=== PATIENT | female | born 1990 | race Caucasian/White ===

== ENCOUNTER → 2020-03-06 | Outpatient (CLI) | payer MEDICAID, SELFPAY | END | disposition home or self-care (01) | PROVIDERS: Referring Provider Obstetrics & Gynecology; Visit Provider Obstetrics & Gynecology | DX: R30.0 Dysuria (principal) | CPT/HCPCS: 87086; 87088 ==

== ENCOUNTER → 2020-11-30 | Outpatient (CLI) | payer MEDICAID, SELFPAY ==
[2016-10-17 20:22] VITALS: BMI 40.8
[2020-12-05 03:07] LABS: Chlamydia By Nucleic Acid AMP Negative (Negative)
[2020-12-05 09:29] LABS: Gonococcus By Nucleic Acid AMP Negative (Negative)
[2020-12-06 15:21] LABS: HPV Reflexed? NOT INDICATED
== END | disposition home or self-care (01) ==
LOC: LABSPEC 12:01
PROVIDERS: Visit Provider Obstetrics & Gynecology
DX: Z32.01 Encounter for pregnancy test, result positive (principal); Z12.4 Encounter for screening for malignant neoplasm of cervix; Z11.3 Encounter for screening for infections with a predominantly sexual mode of transmission
CPT/HCPCS: 87491; 87591; 88175; G0145

== ENCOUNTER → 2020-12-06 15:10 | Outpatient (CLI) | payer MEDICAID, SELFPAY ==
[2016-10-17 20:22] VITALS: BMI 40.8
[2020-12-06 16:46] LABS: hCG Titer Quant., Serum 17314 mIU/mL (1-3)
== END ==
PROVIDERS: Visit Provider Obstetrics & Gynecology
DX: O20.0 Threatened abortion (principal); Z3A.00 Weeks of gestation of pregnancy not specified
CPT/HCPCS: 36415; 84702

== ENCOUNTER → 2020-12-08 14:26 | Outpatient (CLI) | payer MEDICAID, SELFPAY ==
[2016-10-17 20:22] VITALS: BMI 40.8
[2020-12-08 15:43] LABS: Absolute Neutrophil Count 3.4 X10^3/uL (2.0-7.7); Basophil# 0.04 X10^3/uL; Basophil% 0.7 % (0-1); Eosinophil# 0.12 X10^3/uL; Hematocrit 40.7 % (37-47); Hemoglobin 11.7 g/dL (12.0-15.0); Lymphocyte % 35.1 % (19-41); Mean Corp Hgb Conc 28.7 g/dL (32-36); Mean Corpuscular Hgb 21.6 pg (27.0-32.0); Mean Corpuscular Volume 75.2 fL (81-99); Mean Platelet Vol. 10.7 fl (6.2-12.0); Monocyte# 0.35 X10^3/uL; Monocyte% 5.9 % (0-10); NRBC Flagged by Analyzer 0 % (0-5); Neutrophil # 3.36 X10^3/uL (2.7-7.7); Neutrophil % 56.1 % (47-70); Platelet Count 303 K/mm3 (150-450); RBC Distribution Width CV 17.3 % (11.6-14.6); Red Blood Count 5.41 M/mm3 (4.2-5.4)
[2020-12-13 15:15] LABS: HIV - WCH Non-Reactive (Nonreactive); Hepatitis B Surface Antigen Non-Reactive (Nonreactive); Hepatitis C Antibody Non-Reactive (Nonreactive); Rubella IgG Reactive (Nonreactive)
[2020-12-14 03:03] LABS: Prenatal RPR NONREACTIVE (NONREACTIVE)
== END ==
PROVIDERS: Visit Provider Student in an Organized Health Care Education/Training Program
DX: Z34.81 Encounter for supervision of other normal pregnancy, first trimester (principal)
CPT/HCPCS: 36415; 85025; 86703; 86762; 86803; 87086; 87088; 87340

== ENCOUNTER → 2021-01-04 15:23 | Outpatient (CLI) | payer MEDICAID, SELFPAY ==
[2016-10-17 20:22] VITALS: BMI 40.8
[2021-01-04 16:10] LABS: Absolute Neutrophil Count 4.8 X10^3/uL (2.0-7.7); Basophil# 0.03 X10^3/uL; Basophil% 0.4 % (0-1); Eosinophil# 0.19 X10^3/uL; Eosinophils% 2.6 % (0-5); Hemoglobin 11.4 g/dL (12.0-15.0); Lymphocyte % 26.9 % (19-41); Mean Corpuscular Hgb 22.4 pg (27.0-32.0); Mean Corpuscular Volume 74.7 fL (81-99); Mean Platelet Vol. 10.5 fl (6.2-12.0); Monocyte# 0.36 X10^3/uL; Monocyte% 4.8 % (0-10); NRBC Flagged by Analyzer 0 % (0-5); Neutrophil # 4.84 X10^3/uL (2.7-7.7); Platelet Count 233 K/mm3 (150-450); RBC Distribution Width CV 16.7 % (11.6-14.6); RBC Distribution Width SD 44.4 fl (35.1-43.9); Red Blood Count 5.09 M/mm3 (4.2-5.4); White Blood Count 7.4 K/mm3 (4.4-11.0)
[2021-01-04 16:15] LABS: Color, Urine Yellow (Yellow); Glucose, Dipstick Normal (Normal); Ketone-Dipstick 5 mg/dl (Negative); Leukocyte Esterase-Dipstick 100 /ul (Negative); Nitrite-Dipstick Negative (Negative); Occult Blood-Urine Negative /ul (Negative); Protein-Dipstick 15 mg/dl (Negative); Urine Bilirubin Dipstick Negative (Negative); Urine Clarity Clear (Clear); Urine Urobilinogen Normal (Normal)
[2021-01-04 16:43] LABS: Thyroid Stim Hormone (TSH) 0.38 uIU/mL (0.358-3.74)
[2021-01-04 17:16] LABS: Amphetamine Urine VISTA NEGATIVE (<1000 ng/mL); Barbiturate Urine VISTA NEGATIVE (< 200 ng/mL); Benzodiazepine Urine VISTA NEGATIVE (< 200 ng/mL); Cocaine Urine VISTA NEGATIVE (< 300 ng/mL); Ecstacy Urine VISTA NEGATIVE (< 500 ng/mL); Methadone Urine VISTA NEGATIVE (< 300 ng/mL); PCP Urine VISTA NEGATIVE (< 25 ng/mL); THC Urine VISTA NEGATIVE (< 50 ng/mL); Vista UDS pH Range 5
[2021-01-05 09:13] LABS: HIV - WCH Non-Reactive (Nonreactive); Hepatitis B Surface Antigen Non-Reactive (Nonreactive); Hepatitis C Antibody Non-Reactive (Nonreactive); Rubella IgG Reactive (Nonreactive); Syphilis Antibodies Non-reactive
[2021-01-16 14:48] LABS: KEPPRA (LEVETIRACETAM) 10.4 ug/mL (10.0-40.0); Lamotrigine (Lamictal) Level 6.4 ug/mL (2.0-20.0)
== END ==
PROVIDERS: Visit Provider Obstetrics & Gynecology
DX: Z34.81 Encounter for supervision of other normal pregnancy, first trimester (principal); G40.009 Localization-related (focal) (partial) idiopathic epilepsy and epileptic syndromes with seizures of localized onset, not intractable, without status epilepticus
CPT/HCPCS: 36415; 80177; 80307; 81002; 82542; 84443; 85025; 86703; 86762; 86803; 87086; 87088; 87340

== ENCOUNTER → 2021-04-17 | Outpatient (CLI) | payer MEDICAID, SELFPAY ==
[2016-10-17 20:22] VITALS: BMI 40.8
[2021-04-17 17:53] LABS: Hematocrit 33.7 % (37-47); Hemoglobin 10.4 g/dL (12.0-15.0); Mean Corp Hgb Conc 30.9 g/dL (32-36); Mean Corpuscular Hgb 24.5 pg (27.0-32.0); Mean Corpuscular Volume 79.5 fL (81-99); Mean Platelet Vol. 10.6 fl (6.2-12.0); Platelet Count 229 K/mm3 (150-450); RBC Distribution Width CV 16.3 % (11.6-14.6); RBC Distribution Width SD 46.6 fl (35.1-43.9); Red Blood Count 4.24 M/mm3 (4.2-5.4); White Blood Count 7.4 K/mm3 (4.4-11.0)
[2021-04-17 18:05] LABS: Glucose Challenge Gest 1H 50g 113 mg/dL (70-140)
== END | disposition home or self-care (01) ==
PROVIDERS: Visit Provider Student in an Organized Health Care Education/Training Program
DX: Z34.82 Encounter for supervision of other normal pregnancy, second trimester (principal)
CPT/HCPCS: 36415; 82950; 85027

== ENCOUNTER → 2021-05-16 16:08 | Outpatient (CLI) | payer MEDICAID, SELFPAY ==
[2016-10-17 20:22] VITALS: BMI 40.8
[2021-05-16 17:32] LABS: Hematocrit 36.1 % (37-47); Mean Corp Hgb Conc 30.5 g/dL (32-36); Mean Corpuscular Hgb 24.1 pg (27.0-32.0); Mean Corpuscular Volume 79.2 fL (81-99); Mean Platelet Vol. 10.2 fl (6.2-12.0); Platelet Count 265 K/mm3 (150-450); RBC Distribution Width CV 14.7 % (11.6-14.6); RBC Distribution Width SD 42.2 fl (35.1-43.9); Red Blood Count 4.56 M/mm3 (4.2-5.4); White Blood Count 9.2 K/mm3 (4.4-11.0)
[2021-05-16 17:41] LABS: Protein, Urine (Random) 37.7 mg/dL (<11.9); Protein:Creat Ratio 212 mg/g CRE (0-200)
[2021-05-16 18:18] LABS: ALB/GLOB Ratio 0.6 RATIO (0.9-2.4); AST(SGOT) 9 U/L (15-37); Alanine Aminotransfer ALT/SGPT 10 U/L (13-56); Albumin, Serum 2.5 g/dL (3.2-5.0); Alkaline Phosphatase 159 U/L (45-117); Anion Gap 4 (5-15); BUN 6 mg/dL (7-18); BUN/Creat Ratio 11.9 RATIO (10-20); Calcium,Total 8.5 mg/dL (8.5-10.1); Chloride 107 mmol/L (98-107); EST Glomerular Filtration Rate 152 mL/min (>60); Est Glom Filt Rate - Afr Amer 184 mL/min (>60); Globulin 4.5 g/dL (2.2-4.2); Glucose 83 mg/dL (74-106); LDH 119 U/L (84-246); Sodium Level 137 mmol/L (136-145); Uric Acid 3.4 mg/dL (2.6-6.0)
== END ==
PROVIDERS: Referring Provider Obstetrics & Gynecology; Visit Provider Obstetrics & Gynecology
DX: Z34.83 Encounter for supervision of other normal pregnancy, third trimester (principal); I10 Essential (primary) hypertension
CPT/HCPCS: 36415; 80053; 82570; 83615; 84156; 84550; 85027

== ENCOUNTER → 2021-05-30 | Outpatient (CLI) | payer MEDICAID, SELFPAY | END | disposition home or self-care (01) | LOC: LABSPEC 16:47 | PROVIDERS: Referring Provider Obstetrics & Gynecology; Visit Provider Obstetrics & Gynecology | DX: Z34.83 Encounter for supervision of other normal pregnancy, third trimester (principal); R35.1 Nocturia | CPT/HCPCS: 87086; 87088 ==

== ENCOUNTER 2021-06-02 17:15 | Outpatient (CLI) | payer MEDICAID, SELFPAY ==
[2016-10-17 20:22] VITALS: BMI 40.8
--- NOTE | 2021-06-02 17:28 | OB.TRI.NOTE ---
HPI - General HPI Narrative KARLA BRAVO, is a 31 F who presents back pain PFSH PFSH Home Medications lamotrigine [Lamictal] 300 mg PO BID 06/02/21 [History Last Taken 06/02/21 10:00] levetiracetam [Keppra] 500 mg PO BID 06/02/21 [History Last Taken 06/02/21 10:00] vit,[id number] [Prenatabs FA] 1 tab PO DAILY 06/02/21 [History Last Taken 06/01/21 22:00] Allergy/AdvReac Type Severity Reaction Status Date / Time amoxicillin Allergy Rash Verified 10/17/16 20:24 cephalexin [From Keflex] Allergy Rash Verified 06/02/21 17:50 Social History Smoking Status: Never smoker NST FHR Rate Baby A Baseline: 140 Variability:: Moderate Accelerations:: 10 x 10 Decelerations:: None NST Reactive:: Yes Uterine Activity:: Quiet Assessment & Plan (1) : PLAN: Patient arrives with back pain. Resolved with Flexeril. No signs of labor. Reassuring heart tones. To discharge home and follow-up at scheduled appointments
[2021-06-02 17:36] VITALS: BP 117/59; PULSE 92; TEMP 36.4; O2SAT 99
[2021-06-02 17:39] VITALS: BP 117/59; PULSE 95
[2021-06-02 17:49] VITALS: BMI 42.5
[2021-06-02 18:23] LABS: Mucous, Urine 0 SEEN /hpf (<or=2+); Red Blood Cells-Urine 0 SEEN /hpf (0-5)
[2021-06-02 18:28] LABS: Color, Urine Yellow (Yellow); Glucose, Dipstick Normal (Normal); Ketone-Dipstick Negative (Negative); Leukocyte Esterase-Dipstick 25 /ul (Negative); Nitrite-Dipstick Negative (Negative); Occult Blood-Urine Negative /ul (Negative); Protein-Dipstick Negative (Negative); Specific Gravity, Urine 1.005 (1.002-1.030); Urine Bilirubin Dipstick Negative (Negative); Urine Clarity Clear (Clear); Urine Urobilinogen Normal (Normal)
[2021-06-02] MEDS: cycloBENZAPRine HCl 10 MG Tablet PO (18:33)
[2021-06-02 18:34] LABS: Bacteria RARE /hpf (None Seen); Squamous Epithelial Cells - UA 0-5 SEEN /hpf (5-10); White Blood Cells 0-5 SEEN /hpf (0-5)
== END 2021-06-02 19:40 | disposition home or self-care (01) ==
LOC: WPOUT 17:21 → WP 17:22
PROVIDERS: Visit Provider Obstetrics & Gynecology
DX: O26.899 Other specified pregnancy related conditions, unspecified trimester (principal); M54.9 Dorsalgia, unspecified; Z3A.00 Weeks of gestation of pregnancy not specified
CPT/HCPCS: 59025; 59050; 81001; 99218; G0378

== ENCOUNTER → 2021-06-15 15:47 | Outpatient (CLI) | payer MEDICAID, SELFPAY ==
[2021-06-02 17:49] VITALS: BMI 42.5
[2021-06-15 15:50] LABS: Mucous, Urine 0 SEEN /hpf (<or=2+); Red Blood Cells-Urine 0 SEEN /hpf (0-5)
[2021-06-15 16:36] LABS: Protein, Urine (Random) 47.4 mg/dL (<11.9); Protein:Creat Ratio 193 mg/g CRE (0-200)
[2021-06-15 16:42] LABS: Color, Urine Yellow (Yellow); Glucose, Dipstick Normal (Normal); Leukocyte Esterase-Dipstick 500 /ul (Negative); Nitrite-Dipstick Negative (Negative); Occult Blood-Urine Negative /ul (Negative); Protein-Dipstick 30 mg/dl (Negative); Specific Gravity, Urine 1.015 (1.002-1.030); Urine Clarity Sl. Cloudy (Clear); Urine Urobilinogen 4 mg/dl (Normal); Urine pH 6.5 (5.0 - 8.0)
[2021-06-15 16:44] LABS: Hematocrit 33.3 % (37-47); Hemoglobin 10.1 g/dL (12.0-15.0); Mean Corp Hgb Conc 30.3 g/dL (32-36); Mean Corpuscular Hgb 23.5 pg (27.0-32.0); Mean Corpuscular Volume 77.6 fL (81-99); Mean Platelet Vol. 10.2 fl (6.2-12.0); Platelet Count 231 K/mm3 (150-450); RBC Distribution Width CV 14.7 % (11.6-14.6); RBC Distribution Width SD 41.2 fl (35.1-43.9); Red Blood Count 4.29 M/mm3 (4.2-5.4); White Blood Count 8.9 K/mm3 (4.4-11.0)
[2021-06-15 17:06] LABS: Urine Bilirubin Dipstick 1 mg/dL (Negative)
[2021-06-15 17:07] LABS: Ketone-Dipstick 150 mg/dl (Negative)
[2021-06-15 17:18] LABS: ALB/GLOB Ratio 0.6 RATIO (0.9-2.4); AST(SGOT) 8 U/L (15-37); Alanine Aminotransfer ALT/SGPT 8 U/L (13-56); Albumin, Serum 2.3 g/dL (3.2-5.0); Alkaline Phosphatase 150 U/L (45-117); Anion Gap 11 (5-15); BUN 4 mg/dL (7-18); BUN/Creat Ratio 6.9 RATIO (10-20); Calcium,Total 7.9 mg/dL (8.5-10.1); Chloride 106 mmol/L (98-107); Creatinine, Serum 0.58 mg/dL (0.55-1.02); EST Glomerular Filtration Rate 130 mL/min (>60); Est Glom Filt Rate - Afr Amer 157 mL/min (>60); Glucose 117 mg/dL (74-106); LDH 97 U/L (84-246); Potassium 3.3 mmol/L (3.5-5.1); Protein, Total 6.3 g/dL (6.4-8.2); Sodium Level 138 mmol/L (136-145)
[2021-06-15 17:30] LABS: Amorphous Sediment 1+ URATE; Bacteria RARE /hpf (None Seen); Squamous Epithelial Cells - UA 10-25 SEEN /hpf (5-10); White Blood Cells 25-50 SEEN /hpf (0-5)
== END ==
PROVIDERS: Visit Provider Obstetrics & Gynecology
DX: O13.3 Gestational [pregnancy-induced] hypertension without significant proteinuria, third trimester (principal); Z3A.00 Weeks of gestation of pregnancy not specified
CPT/HCPCS: 36415; 80053; 81001; 82570; 83615; 84156; 85027

== ENCOUNTER 2021-07-03 09:00 | Outpatient (CLI) | payer MEDICAID, SELFPAY ==
[2021-07-03 09:27] VITALS: BP 123/86; PULSE 107
[2021-07-03 09:30] VITALS: BMI 42.7
--- NOTE | 2021-07-03 21:54 | OB.TRI.NOTE ---
HPI - General HPI Narrative KARLA BRAVO, is a 31 F who presents NST with Covid PFSH PFSH Home Medications lamotrigine [Lamictal] 300 mg PO BID 06/02/21 [History Last Taken 06/02/21 10:00] levetiracetam [Keppra] 500 mg PO BID 06/02/21 [History Last Taken 06/02/21 10:00] vit,[id number] [Prenatabs FA] 1 tab PO DAILY 06/02/21 [History Last Taken 06/01/21 22:00] Allergy/AdvReac Type Severity Reaction Status Date / Time amoxicillin Allergy Rash Verified 07/03/21 10:11 cephalexin [From Keflex] Allergy Rash Verified 07/03/21 10:11 Social History Smoking Status: Never smoker NST FHR Rate Baby A Baseline: 130 Variability:: Moderate Accelerations:: 15 x 15 Decelerations:: None NST Reactive:: Yes Uterine Activity:: Quiet Assessment & Plan (1) : PLAN: Patient arrives for NST with Covid. Reactive NST. Follow-up at scheduled appointments
== END 2021-07-03 10:10 | disposition home or self-care (01) ==
LOC: WPOUT 09:07 → WP 09:07
PROVIDERS: Visit Provider Obstetrics & Gynecology
DX: O98.519 Other viral diseases complicating pregnancy, unspecified trimester (principal); U07.1 COVID-19; Z3A.00 Weeks of gestation of pregnancy not specified
CPT/HCPCS: 59025

== ENCOUNTER → 2021-07-13 | Outpatient (CLI) | payer MEDICAID, SELFPAY | END | disposition home or self-care (01) | LOC: LABSPEC 11:07 | PROVIDERS: Visit Provider Obstetrics & Gynecology | DX: Z36.85 Encounter for antenatal screening for Streptococcus B (principal) | CPT/HCPCS: 87081 ==

== ENCOUNTER 2021-07-14 14:42 | Outpatient (CLI) | payer MEDICAID, SELFPAY ==
[2021-07-14 15:05] VITALS: TEMP 37; O2SAT 98
[2021-07-14 15:06] VITALS: BP 140/85; PULSE 84
[2021-07-14 15:20] VITALS: BMI 43.4
[2021-07-14 15:23] VITALS: BP 134/86; PULSE 83
[2021-07-14 15:38] VITALS: BP 131/83; PULSE 79
[2021-07-14 15:39] LABS: ROM Internal Control Test YES-OK TO RESULT pt. (Internal QC); ROM Patient Test Negative (Negative)
[2021-07-14] MEDS: 0.9% Saline Lock 10 ML Syringe IV (16:00)
[2021-07-14 16:13] LABS: Hematocrit 36.3 % (37-47); Hemoglobin 11.1 g/dL (12.0-15.0); Mean Corp Hgb Conc 30.6 g/dL (32-36); Mean Corpuscular Hgb 24.2 pg (27.0-32.0); Mean Corpuscular Volume 79.1 fL (81-99); Mean Platelet Vol. 11.1 fl (6.2-12.0); Platelet Count 193 K/mm3 (150-450); RBC Distribution Width CV 16.2 % (11.6-14.6); RBC Distribution Width SD 45.3 fl (35.1-43.9); Red Blood Count 4.59 M/mm3 (4.2-5.4); White Blood Count 6.6 K/mm3 (4.4-11.0)
[2021-07-14 16:29] LABS: AST(SGOT) 16 U/L (15-37); Alanine Aminotransfer ALT/SGPT 23 U/L (13-56); Creatinine, Serum 0.47 mg/dL (0.55-1.02); EST Glomerular Filtration Rate 166 mL/min (>60); Est Glom Filt Rate - Afr Amer 201 mL/min (>60); Uric Acid 3.8 mg/dL (2.6-6.0)
[2021-07-14 16:36] LABS: Protein, Urine (Random) < 6.0 mg/dL (<11.9)
[2021-07-14 16:56] VITALS: BP 127/84; PULSE 82
--- NOTE | 2021-07-18 20:43 | OB.TRI.HP_ITS ---
HPI - General HPI Narrative KARLA BRAVO, is a 31 F who presents to labor and delivery at 37 weeks 3 days gestation. She has been followed for occasional elevated blood pressures and has been taking her blood pressures at home. On the date the patient presented to labor and delivery, she was noted to have multiple blood pressures in the 140 to 50s over 90s. Given this she presented to labor and delivery to rule out severe -induced hypertension. PFSH PFSH Home Medications lamotrigine [Lamictal] 300 mg PO BID 06/02/21 [History Last Taken 07/14/21 10:00] levetiracetam [Keppra] 500 mg PO BID 06/02/21 [History Last Taken 07/14/21 10 :00] vit,[id number] [Prenatabs FA] 1 tab PO DAILY 06/02/21 [History Last Taken 07/13/21 22:00] Allergy/AdvReac Type Severity Reaction Status Date / Time amoxicillin Allergy Rash Verified 07/14/21 15:18 cephalexin [From Keflex] Allergy Rash Verified 07/14/21 15:18 Social History Smoking Status: Never smoker NST FHR Rate Baby A NST Reactive:: Yes FHR Category:: Category I Assessment & Plan (1) -induced benign hypertension, antepartum: PLAN: 37+ week gestation with intermittent elevated blood pressures at home. Work-up for -induced hypertension was negative. Reactive nonstress test. Discharge to home with routine instructions and encouraged to follow-up in the office this coming week.
== END 2021-07-14 18:00 | disposition home or self-care (01) ==
LOC: WPOUT 14:49 → WP 14:50
PROVIDERS: Visit Provider Obstetrics & Gynecology
DX: O10.913 Unspecified pre-existing hypertension complicating pregnancy, third trimester (principal); Z3A.37 37 weeks gestation of pregnancy
CPT/HCPCS: 36415; 59025; 59050; 82565; 82570; 84112; 84156; 84450; 84460; 84550; 85027; 99218; A4216; G0378

== ENCOUNTER 2021-07-22 01:51 | Outpatient (CLI) | payer MEDICAID, SELFPAY ==
[2021-07-22 02:28] VITALS: BP 136/85; PULSE 85; PULSE 88; TEMP 36.4; O2SAT 98
[2021-07-22 02:34] VITALS: BMI 42.4
--- NOTE | 2021-07-22 08:30 | OB.TRI.NOTE ---
HPI - General HPI Narrative KARLA BRAVO, is a 31 F who presents at 38 4/7 weeks gestation with c/o decreased movement. PFSH PFSH Medical History (Updated 07/31/21 @ 08:[address] Michelle Esquivel MD) Anxiety Cleft lip and palate Epilepsy Interstitial cystitis depression Home Medications lamotrigine [Lamictal] 300 mg PO BID 06/02/21 [History Last Taken 07/26/21 21:30] levetiracetam [Keppra] 500 mg PO BID 06/02/21 [History Last Taken 07/26/21 21:30] vit,[id number] [Prenatabs FA] 1 tab PO DAILY 06/02/21 [History Last Taken 07/26/21] Allergy/AdvReac Type Severity Reaction Status Date / Time amoxicillin Allergy Rash Verified 07/27/21 05:59 cephalexin [From Keflex] Allergy Rash Verified 07/27/21 05:59 Social History Smoking Status: Never smoker History Elective abortions Hx Para 3 Spontaneous abortions Hx # Term Pregnancies Ectopic pregnancies Hx # Pregnancies Multiple births # of living children NST FHR Rate Baby A Baseline: 130 Variability:: Moderate Accelerations:: 15 x 15 Decelerations:: None NST Reactive:: Yes FHR Category:: Category I Uterine Activity:: 0-1/10 Assessment & Plan (1) Decreased movement: QUALIFIERS: Fetus number: single or unspecified fetus Trimester: third trimester Qualified Code(s): O36.8130 - Decreased movements, third trimester, not applicable or unspecified PLAN: NST reactive, Cat I d/c home
== END 2021-07-22 04:25 | disposition home or self-care (01) ==
LOC: WPOUT 02:05 → WP 02:05
PROVIDERS: Visit Provider Obstetrics & Gynecology
DX: O36.8130 Decreased fetal movements, third trimester, not applicable or unspecified (principal); O99.343 Other mental disorders complicating pregnancy, third trimester; F41.9 Anxiety disorder, unspecified; O99.353 Diseases of the nervous system complicating pregnancy, third trimester; G40.909 Epilepsy, unspecified, not intractable, without status epilepticus; Z79.899 Other long term (current) drug therapy; Z3A.38 38 weeks gestation of pregnancy
CPT/HCPCS: 59025; 59050; 99218; G0378

== ENCOUNTER 2021-07-26 06:50 | Outpatient (CLI) | payer MEDICAID, SELFPAY ==
--- NOTE | 2021-07-26 07:10 | NURSING ---
Per order [facility], place mother on monitor and obtain NST. Do not start induction at this time
[2021-07-26 07:25] VITALS: BMI 42.8
[2021-07-26 07:30] VITALS: BP 137/81; PULSE 95; TEMP 36.8
[2021-07-26 07:31] VITALS: O2SAT 98
--- NOTE | 2021-07-26 09:01 | MDS.RN ---
spoke with Luis Alberto Ortiz who is promotional advertising assistant today for [employer]. Reviewed reactive NST. Order for dc home. Office or [facility] will call to reschedule
--- NOTE | 2021-07-26 09:04 | NURSING ---
pt discharged off unit at this time
--- NOTE | 2021-07-29 17:56 | OB.TRI.NOTE ---
HPI - General HPI Narrative KARLA BRAVO, is a 31 F who presents at 39+ weeks gestation for induction. Upon presentation, the patient was notified that labor and delivery was too full and she was to be sent home. NST was performed. [facility] Medical History (Updated 07/29/21 @ 17:[address] Kasi Leos MD) Anxiety Cleft lip and palate Epilepsy Interstitial cystitis depression Home Medications lamotrigine [Lamictal] 300 mg PO BID 06/02/21 [History Last Taken 07/26/21 21:30] levetiracetam [Keppra] 500 mg PO BID 06/02/21 [History Last Taken 07/26/21 21:30] vit,[id number] [Prenatabs FA] 1 tab PO DAILY 06/02/21 [History Last Taken 07/26/21] Allergy/AdvReac Type Severity Reaction Status Date / Time amoxicillin Allergy Rash Verified 07/27/21 05:59 cephalexin [From Keflex] Allergy Rash Verified 07/27/21 05:59 Social History Smoking Status: Never smoker History Elective abortions Hx Para 3 Spontaneous abortions Hx # Term Pregnancies Ectopic pregnancies Hx # Pregnancies Multiple births # of living children NST FHR Rate Baby A NST Reactive:: Yes FHR Category:: Category I Assessment & Plan (1) : COMMENT: Patient at 39+ weeks gestation for induction. Induction postponed as labor delivery is too full. Reactive NST noted. Patient to be scheduled the following day.
== END 2021-07-26 09:05 | disposition home or self-care (01) ==
LOC: WPOUT 09:26
PROVIDERS: Referring Provider Obstetrics & Gynecology; Visit Provider Obstetrics & Gynecology
DX: Z00.00 Encounter for general adult medical examination without abnormal findings (principal)

== ENCOUNTER 2021-07-27 05:06 | Inpatient (IN) | payer MEDICAID, SELFPAY ==
[2021-07-27] VITALS (99 sets, daily range): BP systolic 118–160; BP diastolic 57–95; PULSE 77–114; RESP 16–18; TEMP 36.2–36.9; O2SAT 92–100; BMI 43.0
[2021-07-27] MEDS: Lactated Ringers 1,000 ML 200 ML IV ×2 (05:45→11:08)
[2021-07-27 06:08] LABS: Absolute Neutrophil Count 6.6 X10^3/uL (2.0-7.7); Basophil# 0.03 X10^3/uL; Basophil% 0.3 % (0-1); Eosinophil# 0.09 X10^3/uL; Hematocrit 35.4 % (37-47); Hemoglobin 10.8 g/dL (12.0-15.0); Lymphocyte % 21.5 % (19-41); Mean Corp Hgb Conc 30.5 g/dL (32-36); Mean Corpuscular Hgb 24.4 pg (27.0-32.0); Mean Corpuscular Volume 79.9 fL (81-99); Monocyte# 0.55 X10^3/uL; Monocyte% 5.9 % (0-10); NRBC Flagged by Analyzer 0 % (0-5); Neutrophil # 6.58 X10^3/uL (2.7-7.7); Neutrophil % 70.9 % (47-70); POSITIVE COUNT YES; Platelet Count 170 K/mm3 (150-450); RBC Distribution Width CV 17.2 % (11.6-14.6); RBC Distribution Width SD 49.2 fl (35.1-43.9); Red Blood Count 4.43 M/mm3 (4.2-5.4); White Blood Count 9.3 K/mm3 (4.4-11.0)
[2021-07-27 06:15] LABS: Differential Indicated SCAN CRITERIA MET
[2021-07-27 06:35] LABS: Differential Comment SCANNED
[2021-07-27] MEDS: Lactated Ringers 500 ML 999 ML IV (07:34)
[2021-07-27] MEDS: Oxytocin 30 units/NS 500 ml 30 UNITS/500 ML IV.SOLN IV (08:12)
--- NOTE | 2021-07-27 09:01 | HP.PCM.OB_ITS ---
HPI - General General Date of Admission: 07/27/21 HPI Narrative KARLA BRAVO, is a 31 F at 39 2/7 wga by MARILOU 08/01/21 presenting for scheduled IOL. She has hx epilepsy and obesity. OB PROBLEM LIST: 2nd child Autism, and dev delays 3rd child has Bronchial malacia, and requires O2 at night ALLERGIC to AMOXICILLIN AND KEFLEX! 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 Past treatment. Hx of interstitial cystitis Pt had a 1/2 sister with Hari Gastaut syndrome - Pt has a brother with Down Syndrome subchorionic hematoma Unsure about having an epidural PFSH [facility] Medical History (Updated 08/24/21 @ 19:[address] Michelle Esquivel MD) Anxiety Cleft lip and palate Epilepsy Interstitial cystitis depression Home Medications lamotrigine [Lamictal] 300 mg PO BID 06/02/21 [History Last Taken 07/26/21 21:30] levetiracetam [Keppra] 500 mg PO BID 06/02/21 [History Last Taken 07/26/21 21:30] vit,[id number] [Prenatabs FA] 1 tab PO DAILY 06/02/21 [History Last Taken 07/26/21] Allergy/AdvReac Type Severity Reaction Status Date / Time amoxicillin Allergy Rash Verified 07/27/21 05:59 cephalexin [From Keflex] Allergy Rash Verified 07/27/21 05:59 Social History Smoking Status: Never smoker History Elective abortions Hx Para 3 Spontaneous abortions Hx # Term Pregnancies Ectopic pregnancies Hx # Pregnancies Multiple births # of living children NST FHR Rate Baby A NST Reactive:: Yes FHR Category:: Category I Vital Signs Vital Signs Vital Signs: Weight Weight: 124.556 kg Body Mass Index (BMI) 43.0 Physical Exam Const alert, oriented x3 and no apparent distress HEENT normocephalic Resp normal respiratory effort, normal air movement and clear to auscultation bilaterally Cardio regular rate and regular rhythm GI normal to inspection, nondistended, normoactive bowel sounds, soft to palpation, non-tender and non-distended Inspection: gravid Labs Labs Labs: Blood Type B POSITIVE Antibody Screen NEGATIVE Hct 35.4 % (37-47) L Hgb 10.8 g/dL (12.0-15.0) L Syphilis Total Ab Non-reactive Rubella IgG Antibody Reactive (Nonreactive) Hep Bs Antigen Non-Reactive (Nonreactive) Neisseria gonorrhoeae DNA (PHILIPPE) Negative (Negative) HIV 1&2 Antibody Non-Reactive (Nonreactive) C.trachomatis DNA (PCR) Negative (Negative) Glucose 1 Hr 50 gm 113 mg/dL (70-140) Miscellaneous Test Assessment & Plan (1) : QUALIFIERS: Weeks of gestation: 39 weeks Qualified Code(s): Z3A.39 - 39 weeks gestation of PLAN: IOL as planned Maternal and statuses reassuring
[2021-07-27] MEDS: fentaNYL-bupivacaine (epidural) 100 ML BAG EPIDURAL (09:48)
[2021-07-27] MEDS: levETIRAcetam 500 MG Tablet PO ×2 (09:51→20:58)
[2021-07-27] MEDS: lamoTRIgine 150 MG Tablet 300 MG PO (09:51)
[2021-07-27] MEDS: Oxytocin 30 units/NS 500 ml 30 UNITS/500 ML IV.SOLN 334 UNITS IV (12:33)
--- NOTE | 2021-07-27 12:53 | EX.PCM.OBRPT ---
Vaginal Delivery Findings Description of Procedure: Called by nursing for delivery. Arrived with baby on mom's chest cord cut and clamped by nursing. Placenta delivered via cord traction and fundal massage. First-degree midline perineal laceration noted, 10 cc of 1% lidocaine injected at repair site, repaired in typical fashion. EBL 250 cc Apgars 9/9
[2021-07-27] MEDS: Acetaminophen 500 MG Tablet 1000 MG PO ×2 (14:38→20:57)
[2021-07-27] MEDS: 0.9% Saline Lock 10 ML Syringe IV (15:19)
--- NOTE | 2021-07-27 15:19 | NURSING ---
Bedside report given to Quinten Brewer RN
[2021-07-27] MEDS: lamoTRIgine 100 MG Tablet 250 MG PO (20:58)
[2021-07-28 00:21] VITALS: BP 124/73; PULSE 82; RESP 18
[2021-07-28] MEDS: Ibuprofen 600 MG Tablet PO ×2 (01:28→07:51)
[2021-07-28 05:00] VITALS: BP 119/77; PULSE 77; RESP 18; TEMP 36.1
[2021-07-28] MEDS: Acetaminophen 500 MG Tablet 1000 MG PO (05:08)
[2021-07-28 07:59] VITALS: BP 135/62; PULSE 90; RESP 16; TEMP 36.3
[2021-07-28] MEDS: levETIRAcetam 500 MG Tablet PO (10:12)
[2021-07-28] MEDS: lamoTRIgine 100 MG Tablet 250 MG PO (10:13)
--- NOTE | 2021-07-28 10:40 | PCM.DC ---
Discharge Instructions Diet Discharge Diet: No restrictions Activity Discharge Activity: Return to Normal Activity, May Drive and May Shower May resume sexual activity in: 4-6 weeks Weight Bearing Status: Weight bearing as tolerated Dressing / Incision Call your doctor if your incision/area has: Continuous Slow Oozing and Foul Smelling Discharge Call your doctor if you observe: Fever of 101 or Higher, Shortness of breath and Chest pain Follow Up Care Please Follow Up With: Michelle Richards MD When: 2 week telehealth visit, 6 week visit Test Results: Test results from this visit will be discussed in further detail at your follow-up appointment, if applicable. Discharge Plan Admission Admit Date/Time: 07/27/21 05:06 Attending Provider: Prakash Ortiz Primary Care Provider: Care PhysicianElin Primary Discharge Orders/Prescriptions Prescriptions: No Action levetiracetam [Keppra] 500 mg Tablet 500 mg PO BID RF: 0 lamotrigine [Lamictal] 200 mg Tablet 300 mg PO BID RF: 0 Prenatabs FA 29-1 mg Tablet 1 tab PO DAILY RF: 0 Disposition Discharge Orders: Discharge Patient (Routine); Ordered 07/28/21 Ordered By: Dr. Prakash Ortiz
--- NOTE | 2021-07-28 10:41 | PCM.PN.OB ---
Subjective Subjective No overnight complaints. Pain well controlled. Objective Data Objective Data Vital Signs: Vital Signs Temp Pulse Resp BP Pulse Ox 97.4 F L 90 16 135/62 H 97 07/28/21 07:59 07/28/21 07:59 07/28/21 07:59 07/28/21 07:59 07/27/21 14:52 Oxygen Delivery Method Room Air Weight: 274 lb 9.6 oz Body Mass Index (BMI) 43.0 Intake & Output: Intake and Output for Last 24 Hours 07/26/21 07/27/21 07/28/21 23:59 23:59 23:59 Intake Total 2805.43 / 2805.43 Output Total 1000 / 1000 Balance 1805.43 / 1805.43 Lab / Micro Data Result Diagrams: 07/27/21 05:50 Physical Exam Const alert, oriented x3, no apparent distress, average body habitus, healthy appearing and well nourished HEENT normocephalic and moist oral mucous membranes Head and Scalp: atraumatic Face and Sinus: normal facial exam Neck full ROM Resp normal respiratory effort, no retractions and no use of accessory muscles Extremity normal to inspection and full ROM Skin no rashes or lesions noted Psych mental status grossly normal, affect normal, speech normal and activity/motor behavior normal Assessment & Plan (1) Vaginal delivery: PLAN: day 1. Pain well controlled. Breast-feeding. Okay to discharge home if okay with engraver signature
[2021-07-28 13:00] VITALS: BP 128/77; PULSE 80; RESP 18; TEMP 36.1
--- NOTE | 2021-07-28 13:30 | CASEMGMT ---
Social Work Brief Assessment Labor and Delivery Unit Refer documentation below for further details. Date of Referral/Notification: 07/28/21 Time of Referral: 11:00 Referred By: Nursing Reason for Referral: Hx post- depression (PPD) Date of Intervention: 07/28/21 Time of Intervention: 13:30 Informant: Medical record and mother of baby (MOB) Assessment: Met with mother of baby (MOB) in room. Introduced role and reason for referral. MOB sitting up in bed holding baby girl, Fay Beasley. MOB reports history of PPD with first child (who is now 8 years old.) MOB reports has an 8 year old, 5 year old, and 2 year old at home. MOB reports good support from Michelle Gale and family. MOB states history of counseling and anxiety medication on and of throughout life. MOB reports to be ?feeling good.? MOB reports factors that contributed to anxiety and depression was mother being diagnosed with cancer during with 1st child and passing away shortly after her 2nd child was born. MOB reports suffered from a miscarriage in 2018 and sought counseling. MOB denies any issues or concerns. MOB reports to have all needs met for baby. Plan: Home with resources provided No further needs requested or indicated. Mary Lou Lamas, SC[employer]ERRICK OPERATOR, STOCK WORKER AND DELIVERER
[2021-07-28 16:00] VITALS: BP 127/74; PULSE 84; RESP 18; TEMP 36.3
== END 2021-07-28 18:15 | disposition home or self-care (01) | DRG 560 ==
PROVIDERS: Obstetrics & Gynecology; Admitting Provider Obstetrics & Gynecology; Visit Provider Obstetrics & Gynecology
DX: O99.354 Diseases of the nervous system complicating childbirth (principal); G40.909 Epilepsy, unspecified, not intractable, without status epilepticus; Z3A.39 39 weeks gestation of pregnancy; Z37.0 Single live birth; O99.214 Obesity complicating childbirth; E66.9 Obesity, unspecified; Z79.899 Other long term (current) drug therapy; O70.0 First degree perineal laceration during delivery
CPT/HCPCS: 59025; 59050; 85025; 86850; 86900; 86901; 99218; J7120; A4216; G0378